=== PATIENT | male | born 1965 | race Caucasian/White ===

== ENCOUNTER 2023-04-02 10:15 | Outpatient (OUT) | payer OTHER, SELFPAY ==
--- NOTE | 2023-04-02 10:25 | XR_ITS ---
The [address] [address] Patient Name: JHON CRESPO MRN: [id number] date: 1965 Sex: M Assigned Patient Location: RAD Current Patient Location: [facility] Accession/Order Number: [id number] Exam Date: 04/02/2023 10:40 Report Date: 04/02/2023 11:05 At the request of: MAXIMO MARTINEZ Procedure: XR knee LT 4V EXAM: XR knee LT 4V HISTORY: Left Knee Sprain COMPARISON: None TECHNIQUE: 3 views of the left knee were obtained. FINDINGS: No definite acute fracture or dislocation. Mild medial spurring. Mild spurring of the medial aspect of the intracondylar notch of the distal femur. No evidence of sizable suprapatellar joint effusion. Soft tissues are grossly within normal limits. XR/XR knee LT 4V IMPRESSION: Left knee study fails to demonstrate definite acute fracture or dislocation. Follow-up as needed. Electronically authenticated by: EDWIN JEAN Date: 04/02/2023 11:05
== END 2023-04-02 10:16 | disposition home or self-care (01) ==
LOC: RAD 10:19
PROVIDERS: PCP Internal Medicine; Visit Provider Nurse Practitioner Family
DX: S83.92XA Sprain of unspecified site of left knee, initial encounter (principal)
CPT/HCPCS: 73564